=== PATIENT | male | born 1990 | race Caucasian/White ===

== ENCOUNTER 2021-04-11 20:48 | Emergency (ER) | payer OTHER ==
[2021-04-11 21:13] VITALS: BP 141/99; PULSE 83; TEMP 98.4; BMI 26.5
[2021-04-11] MEDS ORDERED: LIDOCAINE PATCH REMOVAL MC SCH (22:00)
[2021-04-11] MEDS ORDERED: LIDOCAINE 5% TOPICAL PATCH TP ONE (22:16)
[2021-04-11] MEDS ORDERED: IBUPROFEN 600 MG TABLET (FP) PO ONE ×2 (22:16→22:25)
[2021-04-11] MEDS ORDERED: METHOCARBAMOL 500 MG TABLET PO ONE (22:16)
[2021-04-11] MEDS ORDERED: METHOCARBAMOL 500 MG TABLET ONE (22:25)
[2021-04-11] MEDS ORDERED: LIDOCAINE 5% TOPICAL PATCH ONE (22:27)
== END 2021-04-11 22:34 | disposition home or self-care (01) ==
LOC: JER 20:48
DX: S39.012A Strain of muscle, fascia and tendon of lower back, initial encounter (principal); M54.32 Sciatica, left side
CPT/HCPCS: 99283-25

== ENCOUNTER 2021-06-08 07:40 | Emergency (ER) | payer OTHER ==
[2021-06-08 07:46] VITALS: BP 132/72; PULSE 80; TEMP 98.2; BMI 26.5
[2021-06-08] MEDS ORDERED: KETOROLAC TROMETHAMINE 30 MG/1 ML VIAL IM ONE (08:25)
[2021-06-08] MEDS ORDERED: KETOROLAC TROMETHAMINE 30 MG/1 ML VIAL ONE (08:34)
== END 2021-06-08 09:28 | disposition home or self-care (01) ==
LOC: JER 07:40
PROC: 3E0233Z Introduction of Anti-inflammatory into Muscle, Percutaneous Approach (ICD-10-PCS; principal; 2021-06-08)
DX: S86.111A Strain of other muscle(s) and tendon(s) of posterior muscle group at lower leg level, right leg, initial encounter (principal)
CPT/HCPCS: 99284-25

== ENCOUNTER 2022-03-09 13:24 | Emergency (ER) | payer OTHER ==
[2022-03-09 13:46] VITALS: BP 150/88; PULSE 95; TEMP 97.9; BMI 26.5
[2022-03-09] MEDS ORDERED: LIDOCAINE 5% TOPICAL PATCH TP ONE (14:23)
[2022-03-09] MEDS ORDERED: KETOROLAC TROMETHAMINE 30 MG/1 ML VIAL IM ONE (14:23)
[2022-03-09] MEDS ORDERED: diazePAM 2 MG TABLET PO ONE (14:23)
[2022-03-09] MEDS ORDERED: KETOROLAC TROMETHAMINE 30 MG/1 ML VIAL ONE (14:27)
[2022-03-09] MEDS ORDERED: LIDOCAINE 5% TOPICAL PATCH ONE (14:27)
[2022-03-09] MEDS ORDERED: diazePAM 2 MG TABLET ONE (14:27)
[2022-03-09] MEDS ORDERED: LIDOCAINE PATCH REMOVAL MC SCH (22:00)
== END 2022-03-09 14:36 | disposition home or self-care (01) ==
LOC: JERFT 13:24
PROC: 3E023GC Introduction of Other Therapeutic Substance into Muscle, Percutaneous Approach (ICD-10-PCS; principal; 2022-03-09)
DX: S16.1XXA Strain of muscle, fascia and tendon at neck level, initial encounter (principal); M62.838 Other muscle spasm; X50.0XXA Overexertion from strenuous movement or load, initial encounter
CPT/HCPCS: 99284-25